=== PATIENT | female | born 1975 | race Asian ===

== ENCOUNTER 2020-07-12 16:07 | Emergency (ER) | payer OTHER ==
[~2020-07-12] VITALS: Ht 160 cm; Wt 89.4 kg
[2020-07-12 16:14] VITALS: Ht 160 cm; Wt 89.4 kg
[2020-07-12 17:55] VITALS: BP 137/75
== END 2020-07-12 17:55 | disposition home or self-care (01) ==
LOC: ED 16:07
DX: S16.1XXA Strain of muscle, fascia and tendon at neck level, initial encounter (principal); R51 Headache; M54.5 Low back pain; I10 Essential (primary) hypertension; E78.00 Pure hypercholesterolemia, unspecified; E11.9 Type 2 diabetes mellitus without complications; Z88.6 Allergy status to analgesic agent; V49.49XA Driver injured in collision with other motor vehicles in traffic accident, initial encounter; Y93.I9 Activity, other involving external motion; Y92.488 Other paved roadways as the place of occurrence of the external cause; Y99.8 Other external cause status